=== PATIENT | male | born 1945 | race African-American/Black ===

== ENCOUNTER 2016-08-27 15:30 | Outpatient (RCR) | payer OTHER | END 2016-09-19 | disposition home or self-care (01) | LOC: PTY 15:30 | DX: M25.562 Pain in left knee (principal); M51.36 Other intervertebral disc degeneration, lumbar region; R53.1 Weakness; I10 Essential (primary) hypertension; E78.5 Hyperlipidemia, unspecified; M19.90 Unspecified osteoarthritis, unspecified site; E11.9 Type 2 diabetes mellitus without complications; Z96.651 Presence of right artificial knee joint; E03.9 Hypothyroidism, unspecified | CPT/HCPCS: 97110; 97162; G0283 ==

== ENCOUNTER 2016-10-01 10:30 | Outpatient (RCR) | payer OTHER | END 2016-10-20 | disposition home or self-care (01) | LOC: PTY 10:30 | DX: M25.562 Pain in left knee (principal); M51.36 Other intervertebral disc degeneration, lumbar region; R53.1 Weakness; I10 Essential (primary) hypertension; E78.5 Hyperlipidemia, unspecified; M19.90 Unspecified osteoarthritis, unspecified site; E11.9 Type 2 diabetes mellitus without complications; Z96.651 Presence of right artificial knee joint; E03.9 Hypothyroidism, unspecified | CPT/HCPCS: 97110; G0283 ==